=== PATIENT | female | born 1980 | race Caucasian/White ===

== ENCOUNTER 2021-08-17 06:05 | Observation (INO) ==
[2021-08-17] MEDS ORDERED: CeFAZolin Syr 2,000MG/20 ML 2,000 MG/20 ML SYRINGE IVPB ONE (06:25)
[2021-08-17] MEDS ORDERED: Ringers Solution, Lactated 1,000 ML IVC SCH (06:30)
[2021-08-17] MEDS ORDERED: *HR* Propofol 200 MG/20 ML VIAL IVP ONE (07:08)
[2021-08-17] MEDS ORDERED: *HR* Midazolam HCl 2 MG/2 ML VIAL ONE (07:08)
[2021-08-17] MEDS ORDERED: Ondansetron 4 MG/2 ML VIAL IVP PRN ×2 (07:08→11:37)
[2021-08-17] MEDS ORDERED: *HR* HYDROmorphone PF 0.5 MG/0.5 ML SYRINGE IVP PRN (07:08)
[2021-08-17] MEDS ORDERED: *HR* Rocuronium Bromide 50 MG/5 ML VIAL ONE ×2 (07:08→08:47)
[2021-08-17] MEDS ORDERED: Lidocaine -MPF 4% 5 ML AMPUL ONE (07:08)
[2021-08-17] MEDS ORDERED: *HR* FentaNYL (PF) 100 MCG/2 ML VIAL ONE (07:08)
[2021-08-17] MEDS ORDERED: Lidocaine -MPF 2% 5 ML VIAL ONE (07:08)
[2021-08-17] MEDS ORDERED: *HR* OxyCODONE Immed Rel 5 MG TABLET PO PRN (07:08)
[2021-08-17] MEDS ORDERED: *HR* Belladonna Alkaloids/Opium 30 MG RECTAL SUPPOSITORY RC ONE ×2 (07:16→08:51)
[2021-08-17] MEDS ORDERED: Bupivacaine/EPI 1:200k 0.25% 50 ML VIAL ONE (07:16)
[2021-08-17] MEDS ORDERED: Acetaminophen IV 1,000 MG/100 ML BAG IVPB ONE ×2 (07:25→17:18)
[2021-08-17] MEDS ORDERED: Ketamine HCL *QUVA* 50mg (1mL) SYRINGE ONE (08:28)
[2021-08-17] MEDS ORDERED: *HR* Magnesium Sulfate 1 GM/2 ML VIAL ONE (08:34)
[2021-08-17] MEDS ORDERED: Sugammadex Sodium 200 MG/2 ML VIAL IV ONE (09:53)
[2021-08-17] MEDS ORDERED: *HR* HYDROMORPHONE 2 MG/ML VIAL ONE (10:20)
[2021-08-17] MEDS ORDERED: *HR* OxyCODONE/APAP 5/325 TABLET PO PRN (11:37)
[2021-08-17] MEDS ORDERED: Sennosides 8.6 MG TABLET PO PRN (11:37)
[2021-08-17] MEDS ORDERED: Naloxone 0.4 MG/ML INJ IVP PRN (11:37)
[2021-08-17] MEDS ORDERED: 0.9 % Sodium Chloride 1,000 ML IVC SCH (11:37)
[2021-08-17] MEDS: Ibuprofen 600 MG TABLET PO PRN (14:17)
[2021-08-17] MEDS ORDERED: Metoclopramide 10 MG/2 ML VIAL IVP ONE (17:19)
[2021-08-17] MEDS ORDERED: Acetaminophen 325 MG TABLET PO PRN (18:05)
[2021-08-17 23:27] VITALS: O2SAT 96
[2021-08-18] MEDS ORDERED: Ondansetron 4 MG/2 ML VIAL IVP PRN (01:58)
[2021-08-18 07:49] VITALS: BP 99/70; PULSE 73; TEMP 98.4
[2021-08-18] MEDS: Ibuprofen 600 MG TABLET PO PRN (08:39)
== END 2021-08-18 10:09 | disposition home or self-care (01) ==
LOC: SAMDAY 06:05 → 1NENUOBS 06:05 → 1NENUPED 21:36
PROVIDERS: ADMIT Obstetrics & Gynecology; ATTEND Obstetrics & Gynecology